=== PATIENT | male | born 1965 ===

== ENCOUNTER 2020-07-17 07:51 | Outpatient (CLI) | payer OTHER | END 2020-07-17 08:04 | disposition HB | LOC: SONOGRAMA 07:51 | DX: K76.0 Fatty (change of) liver, not elsewhere classified (principal); R16.1 Splenomegaly, not elsewhere classified; K80.80 Other cholelithiasis without obstruction ==

== ENCOUNTER 2022-10-22 09:10 | Outpatient (CLI) | payer OTHER | END 2022-10-22 09:19 | disposition home or self-care (01) | LOC: SONOGRAMA 09:10 | PROVIDERS: ATTEND Student in an Organized Health Care Education/Training Program | DX: K42.9 Umbilical hernia without obstruction or gangrene (principal) ==